=== PATIENT | male | born 1950 | race Two or more races ===

== ENCOUNTER 2019-02-12 16:25 | Emergency (ER) | payer OTHER ==
[~2019-02-12] VITALS: Ht 180.3 cm; Wt 95.3 kg
== END 2019-02-12 18:12 | disposition home or self-care (01) ==
LOC: ER 16:25
DX: S51.822A Laceration with foreign body of left forearm, initial encounter (principal); W31.89XA Contact with other specified machinery, initial encounter; Y93.89 Activity, other specified; Y92.018 Other place in single-family (private) house as the place of occurrence of the external cause; Y99.8 Other external cause status